=== PATIENT | female | born 1950 | race African-American/Black ===

== ENCOUNTER 2021-08-08 07:19 | Day surgery (SDC) | payer OTHER ==
[2021-08-03 09:08] VITALS: BMI 28.5
[2021-08-08] MEDS ORDERED: PROPOFOL 20 ML ONE (08:59)
[2021-08-08] MEDS ORDERED: GLYCOPYRROLATE 0.2 MG/1 ML VIAL ONE (08:59)
[2021-08-08] MEDS ORDERED: MIDAZOLAM HCL 2 MG/2 ML SINGLE DOSE VIAL ONE ×2 (08:59)
[2021-08-08] MEDS ORDERED: ONDANSETRON 4 MG/2 ML VIAL ONE (08:59)
[2021-08-08] MEDS ORDERED: DEXAMETHASONE SOD PHOSPHATE 4 MG/1 ML VIAL ONE (08:59)
[2021-08-08] MEDS ORDERED: ONDANSETRON 4 MG/2 ML VIAL IVPUSH PRN (09:38)
[2021-08-08] MEDS ORDERED: oxyCODONE HCL 5 MG TABLET PO PRN (09:38)
[2021-08-08] MEDS ORDERED: LACTATED RINGERS SOLUTION 1,000 ML IV SCH (09:45)
[2021-08-08] MEDS ORDERED: CLINDAMYCIN PHOSPHATE 600 MG/4 ML VIAL ONE (10:05)
[2021-08-08] MEDS ORDERED: PHENYLEPHRINE HCL 10 MG/1 ML SINGLE DOSE VIAL ONE (10:25)
[2021-08-08] MEDS ORDERED: LABETALOL HCL 5 MG/1 ML (100MG/20 ML VIAL) ONE (11:34)
[2021-08-08] MEDS ORDERED: LABETALOL HCL 5 MG/1 ML (100MG/20 ML VIAL) IVPUSH ONE ×4 (11:55→13:39)
[2021-08-08 12:53] VITALS: TEMP 98.4
[2021-08-08] MEDS ORDERED: diphenhydrAMINE HCL 25 MG CAPSULE (FP) PO ONE (13:06)
[2021-08-08] MEDS ORDERED: diphenhydrAMINE HCL 50 MG CAPSULE PO ONE (13:38)
[2021-08-08 13:47] VITALS: BP 135/81; PULSE 62
== END 2021-08-08 13:30 | disposition home or self-care (01) ==
LOC: FASU 07:19
PROVIDERS: ATTEND Ophthalmology
PROC: 08SQ0ZZ Reposition Right Lower Eyelid, Open Approach (ICD-10-PCS; 2021-08-08)
PROC: 08BR0ZX Excision of Left Lower Eyelid, Open Approach, Diagnostic (ICD-10-PCS; 2021-08-08)
PROC: 08BQ0ZX Excision of Right Lower Eyelid, Open Approach, Diagnostic (ICD-10-PCS; 2021-08-08)
PROC: 08SR0ZZ Reposition Left Lower Eyelid, Open Approach (ICD-10-PCS; principal; 2021-08-08 10:05)
DX: H02.132 Senile ectropion of right lower eyelid (principal); H02.135 Senile ectropion of left lower eyelid; H04.552 Acquired stenosis of left nasolacrimal duct; H04.551 Acquired stenosis of right nasolacrimal duct
CPT/HCPCS: 88304-TC; 94760